=== PATIENT | male | born 1940 | race Caucasian/White ===

== ENCOUNTER → 2023-12-10 08:04 | Outpatient (REF) | payer MEDICARE, SELFPAY ==
[2023-12-10 11:03] LABS: ALT (SGPT) 35 U/L (0-50); AST (SGOT) 34 U/L (17-59); Albumin 4.1 g/dl (3.5-5.0); Alkaline Phosphatase 72 U/L (38-126); Blood Urea Nitrogen 22 mg/dl (9-20); Calcium 9.8 mg/dl (8.4-10.2); Carbon Dioxide 26 mmol/L (22-30); Chloride 105 mmol/L (98-107); Glucose 117 mg/dl (70-99); HDL Cholesterol 95 mg/dl; LDL Cholesterol, Calculated 42 mg/dl; Potassium 4.5 mmol/L (3.5-5.1); Sodium 137 mmol/L (135-145); Total Bilirubin 1.1 mg/dl (0.2-1.3); Total Cholesterol 151 mg/dl (50-199); Total Protein 6.8 g/dl (6.3-8.2); Triglyceride 72 mg/dl (10-149); Very Low Density Lipoprotein 14 mg/dl (0-30); eGFR > 60.00
[2023-12-10 11:20] LABS: Glycohemoglobin (HgbA1c) 6.5 % (4.0-5.6)
== END ==
LOC: HWLAB 08:04
PROVIDERS: ATTENDING PHYSICIAN Internal Medicine
DX: E11.9 Type 2 diabetes mellitus without complications (principal); R73.9 Hyperglycemia, unspecified; E78.2 Mixed hyperlipidemia
CPT/HCPCS: 36415; 80053; 80061; 83036

== ENCOUNTER 2024-01-15 11:53 | Emergency (ER) | payer MEDICARE, SELFPAY ==
[2024-01-15] VITALS (10 sets, daily range): BP systolic 88–125; BP diastolic 57–107; PULSE 60–65; BMI 31.1
[2024-01-15 12:14] LABS: % Basophils 1.3 % (0-2); % Eosinophils 5.3 % (0-6); % Immature Granulocytes 0.3 % (0-0.5); % Lymphocytes 28.3 % (20.5-51.1); % Monocytes 9.9 % (1.7-9.3); % Neutrophils 54.9 % (42.2-75.2); Absolute Basophils 0.1 10^3/uL (0-0.2); Absolute Eosinophils 0.3 10^3/uL (0-0.7); Absolute Lymphocytes 1.8 10^3/uL (1.2-3.4); Absolute Monocytes 0.6 10^3/uL (0.1-0.6); Absolute Neutrophils 3.5 10^3/uL (1.4-6.5); Hematocrit 41.7 % (39.0-52.0); Hemoglobin 14.2 g/dL (13.0-18.0); Mean Corp Hgb Conc. 34.1 g/dL (33.0-37.0); Mean Corpuscular Hgb 31.3 pg (27.0-31.0); Mean Corpuscular Volume 91.9 fL (80.0-94.0); Nucleated Red Blood Cells % 0 % (-); Platelet Count 172 10^3/uL (130-400); Red Blood Cell Count 4.54 10^6/uL (4.70-6.10); Red Cell Dist. Width 13.3 % (11.5-14.5); White Blood Cell Count 6.3 10^3/uL (4.8-10.8)
[2024-01-15 12:35] LABS: ALT (SGPT) 26 U/L (0-50); AST (SGOT) 31 U/L (17-59); Albumin 4.3 g/dl (3.5-5.0); Alkaline Phosphatase 65 U/L (38-126); Blood Urea Nitrogen 25 mg/dl (9-20); Calcium 9.6 mg/dl (8.4-10.2); Carbon Dioxide 21 mmol/L (22-30); Chloride 108 mmol/L (98-107); Estimated Creatinine Clearance 79 ml/min; Glucose 126 mg/dl (70-99); Potassium 5.2 mmol/L (3.5-5.1); Sodium 138 mmol/L (135-145); Total Bilirubin 1.1 mg/dl (0.2-1.3); Total Protein 7.1 g/dl (6.3-8.2); eGFR > 60.00
[2024-01-15 12:41] LABS: Troponin I < 0.012 ng/ml
[2024-01-15] MEDS: NSS 1000 IV (12:46)
--- NOTE | 2024-01-15 13:33 | ED.GENMED ---
History of Present Illness
<Nuris Wong PA-C - Last Filed: 01/16/24 15:13>
General
Chief Complaint: Fainting/Passed Out
Source: patient
Exam Limitations: none
Time Seen by Provider: 01/15/24 12:10
Nursing documentation reviewed up to this point in time: agreed with
Travel History
Have you had any contact with someone who has COVID-19?: No
Do you have any symptoms of coronavirus? Fever > 100 degrees, chills, cough, shortness of breath, sore throat, loss of taste or smell, muscle aches, or headache?: No
History of Present Illness
History of Present Illness:
83-year-old male with a history of factor V Leiden, DVT and PE on Xarelto, CAD with stents, history of prostate cancer in the past, orthostatic syncope
Presents after syncopal event today. Patient had played [employer] ball which she usually does a few times a week. He says as he was packing up he noticed he was feeling lightheaded. He did sit down for a couple of minutes but then when he tried to
get back up the lightheadedness came back. He did sit himself down and the next thing he knew he woke up to everybody around him. Patient had passed out in the chair without any head trauma. His was a witness and gives the same's history.
Patient says prior to passing out other than lightheadedness he had no other symptoms of chest pain or headache or focal weakness etc. Patient takes lisinopril at night, 10 mg. He is very compliant with his Xarelto. He has not had any recent
shortness of breath or pleuritic pain. He has always had a degree of swelling in the left lower extremity related to his previous DVT. There is skin changes that are also chronic and hyperpigmented. He reports no change to this. Patient has had
orthostatic syncope in the past. He is actually calling at vasovagal syncope and during the hospitalization in May it was related to having episodes of diarrhea which she thought was vasovagal. But patient has also had some orthostasis where
when he stands he feels lightheaded. At that time in May he presented in second-degree heart block which resolved
Phy Exam
<Nuris Wong PA-C - Last Filed: 01/16/24 15:13>
Physical Exam
Physical Exam:
GENERAL: Alert , in no apparent distress
EYE: pupils equal and reactive
NECK: Supple
ENT: o/p clr, mmm.
CARDIAC: Regular rate and rhythm . PVD skin chnages, slightly larger left calf chronically; nontender, no edema
LUNGS: Clear breath sounds bilaterally, no acute respiratory distress, no wheezes/rales/rhonchi
ABDOMEN: Soft, without focal tenderness, no r/g, no cvat, normal bowel sounds
NEUROLOGICAL: Alert and oriented, no focal neuro deficits
SKIN: Warm and dry, skin intact. PVD changes
MUSCULOSKELETAL: left lower extremity swelling no edema, nontender
PSYCH: Normal and appropriate interaction.
Course
<Nuris Wong PA-C - Last Filed: 01/16/24 15:13>
Orders/Labs/Results
Orders:
Orders
01/15/24 11:58
EKG [Electrocardiogram (*1)] Urgent
Reason for Study: Syncope
EKG- Treatment ONCE
01/15/24 12:05
CMP [Comprehensive Metabolic Panel] Urgent
Complete Blood Count/With Diff Urgent
Troponin I Urgent
01/15/24 12:43
0.9% Sodium Chloride 1000 ml [Nss] 1,000 ml IV BOLUS
01/15/24 14:19
Urinalysis Reflex To Culture Urgent
Date Specimen was Collected: 01/15/24
Time Specimen was Collected: 14:18
Abnormal Lab Results
01/15/24 01/15/24
12:05 14:19
RBC 4.54 L 10^6/uL
(4.70-6.10)
MCH 31.3 H pg
(27.0-31.0)
MPV 11.0 H fL
(7.4-10.4)
Monocytes % 9.9 H %
(1.7-9.3)
Potassium 5.2 H mmol/L
(3.5-5.1)
Chloride 108 H mmol/L
(98-107)
Carbon Dioxide 21 L mmol/L
(22-30)
BUN 25 H mg/dl
(9-20)
Glucose 126 H mg/dl
(70-99)
Urine Glucose 3+ A
(Negative)
01/15/24 12:05
01/15/24 12:05
Vital Signs
Initial and Last Documented VS:
Initial Vital Signs
Temp Pulse Resp BP Pulse Ox
98.3 F 62 18 112/60 97
01/15/24 11:54 01/15/24 11:54 01/15/24 11:54 01/15/24 11:54 01/15/24 11:54
Last Documented Vital Signs
Temp Pulse Resp BP Pulse Ox
98.3 F 63 15 112/75 97
01/15/24 11:54 01/15/24 15:30 01/15/24 15:30 01/15/24 15:00 01/15/24 15:15
<Ermias Bennett, - Last Filed: 01/15/24 14:33>
Orders/Labs/Results
Orders:
Orders
01/15/24 11:58
EKG [Electrocardiogram (*1)] Urgent
Reason for Study: Syncope
EKG- Treatment ONCE
01/15/24 12:05
CMP [Comprehensive Metabolic Panel] Urgent
Complete Blood Count/With Diff Urgent
Troponin I Urgent
01/15/24 12:43
0.9% Sodium Chloride 1000 ml [Nss] 1,000 ml IV BOLUS
01/15/24 14:19
Urinalysis Reflex To Culture Urgent
Date Specimen was Collected: 01/15/24
Time Specimen was Collected: 14:18
Abnormal Lab Results
01/15/24 01/15/24
12:05 14:19
RBC 4.54 L 10^6/uL
(4.70-6.10)
MCH 31.3 H pg
(27.0-31.0)
MPV 11.0 H fL
(7.4-10.4)
Monocytes % 9.9 H %
(1.7-9.3)
Potassium 5.2 H mmol/L
(3.5-5.1)
Chloride 108 H mmol/L
(98-107)
Carbon Dioxide 21 L mmol/L
(22-30)
BUN 25 H mg/dl
(9-20)
Glucose 126 H mg/dl
(70-99)
Urine Glucose 3+ A
(Negative)
01/15/24 12:05
01/15/24 12:05
Vital Signs
Initial and Last Documented VS:
Initial Vital Signs
Temp Pulse Resp BP Pulse Ox
98.3 F 62 18 112/60 97
01/15/24 11:54 01/15/24 11:54 01/15/24 11:54 01/15/24 11:54 01/15/24 11:54
Last Documented Vital Signs
Temp Pulse Resp BP Pulse Ox
98.3 F 63 15 112/75 97
01/15/24 11:54 01/15/24 15:30 01/15/24 15:30 01/15/24 15:00 01/15/24 15:15
<Nuris Wong PA-C - Last Filed: 01/16/24 15:13>
MDM/Problems Addressed
Differential Diagnosis Includes:
syncope, othostasis, vasovagal, dehydration, sepsis
MDM/Problems Addressed:
83 y/o M with dvt/factor v leiden on xarelto
h/o orthostasis here with syncope today while seated
he felt lightheaded prior to passing out
no injuries
awake and alert now and feels well
has had this happen several tiems
pt does report peeing a lot last night, may be dehydrated
he is orthostaic mildly ronni and hypotensive
no cp, sob
ekg sinus rhythm 1st degree block, no ischemia
responded well to 1 liter fluids and now normotensive
walked to br band back
labs are stable from previous
d/c home
<Nuris Wong PA-C - Last Filed: 01/16/24 15:13>
*Critical Care Note
Total Time (30-74mins, 75-104mins- exclusive of procedures): Not Applicable
ED Attending Note
<Nuris Wong PA-C - Last Filed: 01/16/24 15:13>
-
Portions of this chart may have been created with voice recognition software.� Occasional wrong word or��sound alike� substitutions may have occurred due to the inherent limitations of voice recognition software.
<Ermias Bennett DO - Last Filed: 01/15/24 14:33>
ED Attending Note
Patient seen and examined by attending physician: Yes
I performed the substantive portion of visit, reviewed & personally made and approve the management plan that is documented in note by myself or SERINA.: Yes
Discharge Plan
Departure
Patient Disposition: Home (Routine Discharge)
Date of Disposition: 01/15/24
Time of Disposition: 15:20
Patient with high blood pressure during this ER visit?: No
Condition: Fair
Covid-19: Not Applicable
Discharge Problem:
Orthostatic hypotension
Instructions: Syncope (Fainting) (DC)
Prescriptions:
No Action
lisinopril 5 MG tablet
5 mg PO QPM
acetaminophen [Tylenol Extra Strength] 500 mg Tablet
1,000 mg PO Q6HPRN PRN (Reason: mild pain)
ezetimibe 10 mg Tablet
10 mg PO HS
rosuvastatin 40 mg Tablet
40 mg PO HS
Visbiome 112.5 billion cell Capsule
1 cap PO DAILY
PreserVision AREDS 2,148 mcg-113 mg-45 mg-17.4mg Tablet
1 tab PO BID
Xarelto 20 mg Tablet
20 mg PO QPM
Farxiga 5 mg Tablet
5 mg PO DAILY
oxycodone 5 mg Tablet
5 mg PO Q4HPRN PRN (Reason: severe pain) Qty: 7 0RF
Referrals:
Godfrey Rahman I., DO [Family Provider] - Follow up in 2-3 days
Activity Restrictions/Additional Instructions:
You were a little dehydrated today. We gave you some fluids and you felt better. That was likely the cause of your blood pressure being low when you stand. Sure to stay hydrated and avoid excessive heat. Sit on the side of the bed before you get
up from sitting to avoid passing out. Your potassium was minimally elevated but this is probably because you were dehydrated. May be just avoid high potassium foods like bananas and avocados for 2 days or so in case you are regularly eating those
foods.
Return to the ER for repeated episodes or any concerns.
Interventions
Interventions:
*Risk Screen - Suicide Last Done: 01/15/24 11:54
*General Assessment Last Done: 01/15/24 12:22
*Neglect/Abuse Screening Last Done: 01/15/24 11:54
ED- Fall Risk Assessment Last Done: 01/15/24 12:26
*ED COVID-19 Vaccine History Last Done: 01/15/24 11:54
*Nursing Disposition Last Done: 01/15/24 15:56
ED- Cardiac Assessment Last Done: 01/15/24 15:56
ED- Neurological Assessment Last Done: 01/15/24 12:26
Discharge Date and Time
Discharge Date/Time: 01/15/24 15:56
Print Language: TRINIDADIAN
[2024-01-15 14:31] LABS: Urine Albumin Negative (Neg - Trace); Urine Bilirubin Negative (Negative); Urine Character Clear (Clear); Urine Color Yellow; Urine Glucose 3+ (Negative); Urine Ketone Negative (Negative); Urine Leukocyte Negative (Negative); Urine Nitrite Negative (Negative); Urine Occult Blood Negative (Negative); Urine Urobilinogen Negative (Neg - 1+)
== END 2024-01-15 15:56 | disposition home or self-care (01) ==
LOC: EMR 11:53
PROVIDERS: Emergency Medicine; Physician Assistant; EMERGENCY PHYSICIAN Emergency Medicine; FAMILY PHYSICIAN Internal Medicine
DX: I95.1 Orthostatic hypotension (principal); D68.51 Activated protein C resistance; I25.10 Atherosclerotic heart disease of native coronary artery without angina pectoris; Z79.01 Long term (current) use of anticoagulants; Z85.46 Personal history of malignant neoplasm of prostate; Z86.718 Personal history of other venous thrombosis and embolism; Z95.5 Presence of coronary angioplasty implant and graft
CPT/HCPCS: 99283; 96360; 80053; 81003; 84484; 85025; 93005

== ENCOUNTER → 2024-07-06 08:49 | Outpatient (REF) | payer MEDICARE, SELFPAY ==
[2024-07-06 12:25] LABS: ALT (SGPT) 36 U/L (0-50); AST (SGOT) 35 U/L (17-59); Albumin 4.1 g/dl (3.5-5.0); Alkaline Phosphatase 63 U/L (38-126); Blood Urea Nitrogen 21 mg/dl (9-20); Calcium 9.1 mg/dl (8.4-10.2); Carbon Dioxide 30 mmol/L (22-30); Chloride 104 mmol/L (98-107); Glucose 123 mg/dl (70-99); HDL Cholesterol 83 mg/dl; LDL Cholesterol, Calculated 63 mg/dl; Potassium 4.8 mmol/L (3.5-5.1); Sodium 142 mmol/L (135-145); Total Bilirubin 0.8 mg/dl (0.2-1.3); Total Cholesterol 162 mg/dl (50-199); Total Protein 6.8 g/dl (6.3-8.2); Triglyceride 81 mg/dl (10-149); Very Low Density Lipoprotein 16 mg/dl (0-30); eGFR > 60.00
[2024-07-07 10:38] LABS: Glycohemoglobin (HgbA1c) 6.6 % (4.0-5.6)
== END ==
LOC: HWLAB 08:49
PROVIDERS: ATTENDING PHYSICIAN Internal Medicine
DX: E11.9 Type 2 diabetes mellitus without complications (principal)
CPT/HCPCS: 36415; 80053; 80061; 83036

== ENCOUNTER → 2024-12-16 09:07 | Outpatient (REF) | payer MEDICARE, SELFPAY ==
[2024-12-16 12:24] LABS: % Basophils 0.8 % (0-2); % Eosinophils 10.3 % (0-6); % Immature Granulocytes 0.2 % (0-0.5); % Lymphocytes 38.6 % (20.5-51.1); % Monocytes 9.8 % (1.7-9.3); % Neutrophils 40.3 % (42.2-75.2); Absolute Basophils 0.1 10^3/uL (0-0.2); Absolute Eosinophils 0.6 10^3/uL (0-0.7); Absolute Lymphocytes 2.3 10^3/uL (1.2-3.4); Absolute Monocytes 0.6 10^3/uL (0.1-0.6); Absolute Neutrophils 2.4 10^3/uL (1.4-6.5); Hematocrit 42.3 % (39.0-52.0); Hemoglobin 13.9 g/dL (13.0-18.0); Mean Corp Hgb Conc. 32.9 g/dL (33.0-37.0); Mean Corpuscular Hgb 30.8 pg (27.0-31.0); Mean Corpuscular Volume 93.8 fL (80.0-94.0); Mean Platelet Volume 11.3 fL (7.4-10.4); Nucleated Red Blood Cells % 0 % (-); Platelet Count 185 10^3/uL (130-400); Red Blood Cell Count 4.51 10^6/uL (4.70-6.10); Red Cell Dist. Width 13.2 % (11.5-14.5); White Blood Cell Count 5.9 10^3/uL (4.8-10.8)
[2024-12-16 12:36] LABS: ALT (SGPT) 32 U/L (0-50); AST (SGOT) 28 U/L (17-59); Albumin 4.5 g/dl (3.5-5.0); Alkaline Phosphatase 63 U/L (38-126); Blood Urea Nitrogen 21 mg/dl (9-20); Calcium 9.3 mg/dl (8.4-10.2); Carbon Dioxide 25 mmol/L (22-30); Chloride 108 mmol/L (98-107); Glucose 129 mg/dl (70-99); HDL Cholesterol 73 mg/dl; LDL Cholesterol, Calculated 64 mg/dl; Potassium 4.8 mmol/L (3.5-5.1); Sodium 141 mmol/L (135-145); Total Bilirubin 1.5 mg/dl (0.2-1.3); Total Cholesterol 154 mg/dl (50-199); Total Protein 6.9 g/dl (6.3-8.2); Triglyceride 85 mg/dl (10-149); Very Low Density Lipoprotein 17 mg/dl (0-30); eGFR > 60.00
[2024-12-16 12:54] LABS: Glycohemoglobin (HgbA1c) 6.8 % (4.0-5.6)
[2024-12-16 13:33] LABS: Microalbumin, Random Urine 1.5 mg/dl (0.6-1.7); Microalbumin/creatinine Ratio 15.2 mg/g
== END ==
LOC: HWLAB 09:07
PROVIDERS: ATTENDING PHYSICIAN Internal Medicine
DX: I10 Essential (primary) hypertension (principal); E11.9 Type 2 diabetes mellitus without complications; E78.2 Mixed hyperlipidemia
CPT/HCPCS: 36415; 80053; 80061; 82043; 82570; 83036; 84443; 85025

== ENCOUNTER → 2025-06-29 09:58 | Outpatient (REF) | payer MEDICARE, SELFPAY ==
[2025-06-29 11:21] LABS: Hematocrit 42.7 % (39.0-52.0); Hemoglobin 14.1 g/dL (13.0-18.0); Mean Corp Hgb Conc. 33.0 g/dL (33.0-37.0); Mean Corpuscular Volume 92.2 fL (80.0-94.0); Nucleated Red Blood Cells % 0 % (-); Platelet Count 196 10^3/uL (130-400); Red Cell Dist. Width 13.5 % (11.5-14.5)
[2025-06-29 13:01] LABS: ALT (SGPT) 30 U/L (0-50); AST (SGOT) 28 U/L (17-59); Albumin 4.3 g/dl (3.5-5.0); Alkaline Phosphatase 68 U/L (38-126); Blood Urea Nitrogen 19 mg/dl (9-20); Calcium 9.5 mg/dl (8.4-10.2); Carbon Dioxide 27 mmol/L (22-30); Chloride 104 mmol/L (98-107); Glucose 124 mg/dl (70-99); HDL Cholesterol 82 mg/dl; LDL Cholesterol, Calculated 69 mg/dl; Potassium 5.0 mmol/L (3.5-5.1); Sodium 137 mmol/L (135-145); Total Protein 7.2 g/dl (6.3-8.2); Very Low Density Lipoprotein 14 mg/dl (0-30); eGFR > 60.00
[2025-06-30 08:10] LABS: Glycohemoglobin (HgbA1c) 7.0 % (4.0-5.9)
== END ==
LOC: REG 09:58
PROVIDERS: ATTENDING PHYSICIAN Internal Medicine; REFERRING PHYSICIAN Internal Medicine Cardiovascular Disease
DX: I10 Essential (primary) hypertension (principal); E11.9 Type 2 diabetes mellitus without complications; E78.00 Pure hypercholesterolemia, unspecified
CPT/HCPCS: 36415; 80053; 80061; 83036; 84443; 85025